=== PATIENT | female | born 1995 | race Caucasian/White ===

== ENCOUNTER 2022-02-03 07:20 | Outpatient (CLI) | payer OTHER, SELFPAY ==
[2022-02-03 08:36] LABS: Hematocrit 34.2 % (37.0-47.0); Hemoglobin 11.5 g/dL (12.0-15.0)
[2022-02-03 08:45] LABS: Glucose 1 Hour PP 50gm Dose 141 mg/dL
[2022-02-03 09:26] LABS: HIV 1/2 Ab P24 Ag Result Negative (Negative)
[2022-02-03] MEDS: RHO(D) IMMUNE GLOBULIN 300 MCG/2 ML SYRINGE IM (16:42)
== END 2022-02-03 07:21 | disposition home or self-care (01) ==
LOC: ANHLAB 07:22
PROVIDERS: PCP Internal Medicine; Visit Provider Advanced Practice Midwife
DX: O36.0190 Maternal care for anti-D [Rh] antibodies, unspecified trimester, not applicable or unspecified (principal); Z3A.00 Weeks of gestation of pregnancy not specified
CPT/HCPCS: 36415; 82947; 85014; 85018; 85461; 86703; 90384; 96372; G0432; J2790

== ENCOUNTER 2022-03-23 18:08 | Observation (INO) | payer OTHER, SELFPAY ==
[2022-03-23 18:08] VITALS: BMI 26.1
[2022-03-23 18:39] VITALS: BP 124/79; PULSE 67
[2022-03-23 19:00] VITALS: BP 119/76; PULSE 62; TEMP 36.7
[2022-03-23 19:05] LABS: Appearance Urine Clear (Clear); Bilirubin Urine Negative (Negative); Blood Urine Negative (Negative); Color Urine Yellow (Yellow); Glucose Urine UA Negative (Negative); Ketones Urine Negative (Negative); Leukocyte Esterase Ur 1+ LEU/UL (Negative); Nitrate Urine Negative (Negative); Protein Urine Negative (Negative); Urobilinogen Urine 0.2 mg/dL (<2.0); pH Urine 5.5 (5.0-9.0)
[2022-03-23 19:10] LABS: Bacteria Urine Trace /hpf; Mucus Urine Rare /lpf; Squamous Epithelial Cell Urine Few /hpf (Few)
[2022-03-23 19:11] LABS: Add Urine Microscopic? YES
[2022-03-23 19:30] VITALS: BP 122/77; PULSE 64
--- NOTE | 2022-04-18 10:27 | P.PNOB_ITS ---
OB - Triage/Final Diagnosis Visit Information Comments/Additional reasons for admission: I have assessed the risk for this patient, Dafne Cordova, and determined that she would benefit from observation care. Evaluation Laboratory results: Laboratory Tests 03/23/22 18:43 Urine Color Yellow Urine Appearance Clear Urine pH 5.5 Ur Specific [place] 1.020 Urine Protein Negative Urine Glucose (UA) Negative Urine Ketones Negative Ur Blood (Man) Negative Urine Nitrate Negative Urine Bilirubin Negative Urine Urobilinogen 0.2 Leukocyte Esterase Rfl 1+ H Urine RBC 3-5 H Urine WBC 7-9 H Ur Squamous Epith Cells Few Urine Bacteria Trace Urine Mucus Rare Final Diagnosis (1) False labor: Code(s): O47.9 - False labor, unspecified Status: Acute
== END 2022-03-23 20:10 | disposition home or self-care (01) ==
PROVIDERS: Admitting Provider Obstetrics & Gynecology; PCP Internal Medicine; Visit Provider Obstetrics & Gynecology
DX: O47.9 False labor, unspecified (principal); O26.899 Other specified pregnancy related conditions, unspecified trimester; M54.9 Dorsalgia, unspecified; Z3A.00 Weeks of gestation of pregnancy not specified
CPT/HCPCS: 81001; 87086; G0378; G0379

== ENCOUNTER 2022-04-08 15:02 | Outpatient (RCR) | payer OTHER, SELFPAY ==
[2022-04-07] VITALS (18 sets, daily range): BP systolic 122; BP diastolic 96; PULSE 69–99; O2SAT 99–100
[2022-04-07] MEDS: TERBUTALINE SULFATE 1 MG/ML VIAL 0.25 MG SUB-Q (07:16)
--- NOTE | 2022-04-07 07:36 | W.PM.PROC2 ---
Procedure Note - Detailed Date of Procedure 04/07/22 Pre-op Diagnosis breech position, 36 week gestation Post-op Diagnosis Same Procedure Performed attempted external cephalic version Surgeon Paul Moffett MD Indications Thirty-six weeks, venkat breech presentation. Findings Thirty-six week gestation, venakt breech position, venkat breech with presenting parts deep in the pelvis. Description of Procedure Determine position the baby with ultrasound. To rotate the baby in a forward roll. Pushing the presenting part out of the pelvis. It was difficult to push the breech presenting part of the pelvis. Used vaginal exam is cervical exam to elevate the baby some and it could be moved some in that way, however could not be translated into movement transabdominally. The head would from right to left to some degree but could pass around the torso with the lower have rotating to the right and cephalic. The procedure had to be abandoned. The presenting part about removed out of the pelvis adequately Complications No immediate complications Condition Stable
[2022-04-08] MEDS: RHO(D) IMMUNE GLOBULIN 300 MCG/2 ML SYRINGE IM (15:02)
== END 2022-04-08 15:03 | disposition home or self-care (01) ==
LOC: ANHOBOP 15:02
PROVIDERS: PCP Internal Medicine; Visit Provider Obstetrics & Gynecology
DX: Z29.13 Encounter for prophylactic Rho(D) immune globulin (principal)
CPT/HCPCS: 36415; 59412; 85461; 86880; 86902; 90384; 96372; 99199; J2790; J3105

== ENCOUNTER 2022-04-16 04:38 | Inpatient (IN) | payer OTHER, SELFPAY ==
[2022-04-16] VITALS (107 sets, daily range): BP systolic 76–143; BP diastolic 46–102; PULSE 54–145; RESP 12–18; TEMP 36.4–37.1; O2SAT 95–100; BMI 26.6
--- NOTE | 2022-04-16 04:38 | LDADM ---
This patient, Dafne Cordova, was admitted to Labor/Delivery/Recovery 120 on 04/16/22 at 04:38. Plans for labor, pain management and were discussed with patient. Patient/family oriented to hospital policies and general routines including ID bracelet, bed and alarms, visiting hours, pain management, procedures, bathroom and other care routines, personal items, smoking policy, room service/diet and guest tray routines, infant security routines, and visiting hours. Patient/Family are encouraged to report perceived risks to care and to ask questions if they do not understand what they are told or what they should do. See OBIX for further documentation.
--- OUTSIDE RECORDS SUMMARY | 2022-04-16 04:51 | XMS_ITS | Encounter Summary ---
:1995 Author Care Team Providers Name Role Phone Juan Keenan MD Primary Care Provider [phone] Reason for Visit None recorded. Assessment and Plan 1. Pre-existing maternal disease compli cating ? US, obstetric, follow-up Discussion Note: None recorded.Patient educational handouts: No information available. Plan of Care Reminders Provider Appointments Ob Routine 04/19/2022 Cordell hernandez MD 4:45PM ? SURG CSection 04/21/2022 Cordell hernandez MD 7:30AM ? Surg Post Op 04/28/2022 Cordell hernandez MD 10:45AM Lab None recorded. ? ? Referral None recorded. ? ? Procedures None recorded. ? ? Surgeries None recorded. ? ? Imaging US, Obstetric, Follow-up 03/30/2022 Mark valenzuela Medications Name Start Date ? ? Asprin Ec Low Dose ? citalopram ? citalopram 40 mg tablet ? Daily ? Pepcid ? ? Medications Administered None recorded. Vitals None recorded. Results Lab Results None recorded. Allergies Code Code System Name Reaction Severity Onset Penicillin Rash Mild to Moderate ? Penicillins Rash ? ? Problems Name Status Onset Date Source ? 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 Mixed Anxiety and Depressive Disorder Active 09/07/2021 ? Active 10/11/2021 ? Procedures Date Name Performed by ?
--- OUTSIDE RECORDS SUMMARY | 2022-04-16 04:51 | XMS_ITS | Encounter Summary ---
:1995 Author Care Team Providers Name Role Phone Juan Keenan MD Primary Care Provider [phone] Reason for Visit OB visit OB [id number] EDC 04/28/2022 LMP 07/06/2021 Assessment and Plan Assessment Note Patient is _33__weeks . Discuss ed plan. 1. Routine care Discussion Note: None recorded.Patient educational handouts: No information available. Plan of Care Reminders Provider Appointments Ob Routine 04/19/2022 4:45PM Cordell Moffett MD ? SURG CSection 04/21/2022 7:30AM Cordell Moffett MD ? Surg Post Op 04/28/2022 10:45AM Cordell Moffett MD Lab None recorded. ? ? Referral None recorded. ? ? Procedures None recorded. ? ? Surgeries None recorded. ? ? Imaging None recorded. ? ? Medications Name Start Date ? ? Asprin Ec Low Dose ? citalopram ? citalopram 40 mg tablet ? Daily ? Pepcid ? ? Medications Administered None recorded. Vitals Height Weight BMI Blood Pressure 5 ft 8 in 173 lbs 26.3 kg/m2 111/73 mm[Hg] Results Lab Results None recorded. Allergies Code Code System Name Reaction Severity Onset Penicillin Rash Mild to Moderate ? Penicillins Rash ? ? Problems Name Status Onset Date Source ? 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 Mixed Anxiety and Depressive Disorder Active 09/07/2021 ? Active 10/11/2021 ? Procedures
--- OUTSIDE RECORDS SUMMARY | 2022-04-16 04:51 | XMS_ITS | Encounter Summary ---
:1995 Author Care Team Providers Name Role Phone Juan Keenan MD Primary Care Provider [phone] Reason for Visit OB visit Assessment and Plan Assessment Note Patient is ___weeks . Discussed plan. 1. Routine care Discussion Note: None [...] BMI Blood Pressure 5 ft 8 in 176 lbs 26.8 kg/m2 119/81 mm[Hg] Results Lab Results None recorded. Allergies Code Code System Name Reaction Severity Onset Penicillin Rash Mild to Moderate ? Penicillins Rash ? ? Problems Name Status Onset Date Source ? 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 Mixed Anxiety and Depressive Disorder Active 09/07/2021 ? Active 10/11/2021 ? Procedures Date Name Performed by ?
--- OUTSIDE RECORDS SUMMARY | 2022-04-16 04:51 | XMS_ITS ---
:1995 Author Care Team Providers Name Role Phone YAMILETH ALICEA MD Primary Care Provider [phone] Allergies Code Code System Name Reaction Severity Status Onset Penicillin Rash Mild to Moderate Active ? Penicillins Rash ? Active ? Medications Name Status Start Date Stop Date ? ? albuterol sulfate HFA 90 mcg/actuation aerosol Completed ? 11/09/2020 inhaler Asprin Ec Low Dose Active ? Not available azithromycin 250 mg tablet Active ? Not a vailable TK 2 TS PO QD FOR 1 DAY THEN TK 1 T PO D bupropion HCl XL 150 mg 24 hr tablet, extended Completed ? 11/09/2020 release bupropion HCl XL 300 mg 24 hr tablet, extended Completed ? 11/09/2020 release Celexa 10 mg tablet Completed ? 11/09/2020 take 1 tablet by oral route every day citalopram Active ? Not available citalopram 20 mg tablet Completed ? 09/07/20 21 citalopram 40 mg tablet Active ? Not avai lable Cymbalta Completed ? 09/07/2021 Daily Active ? Not available duloxetine 30 mg capsule,delayed release Completed ? 11/09/2020 Flucelvax Quad (PF) 60 mcg (15 mcg x 4)/0.5 mL IM syri nge Completed ? 11/09/2020 PHARMACIST ADMINISTERED IMMUNIZATION ADMINISTERED AT TIME OF DI SPENSING fluconazole 150 mg tablet Completed ? 2021 Elsi 24 Fe 1 mg-20 mcg (24)/75 mg (4) tablet Completed ? 09/07/2021 TAKE 1 TABLET DAILY Lo Loestrin Fe 1 mg-10 mcg (24)/10 mcg (2) tablet Completed 05/06/2018 11/01/2018 TAKE 1 TABLET BY MOUTH EVERY DAY Loestrin Fe 1/20 (28-Day) 1 mg-20 mcg (21)/75 mg (7) tablet Completed 11/03/2018
--- OUTSIDE RECORDS SUMMARY | 2022-04-16 04:51 | XMS_ITS | Encounter Summary ---
:1995 Author Care Team Providers Name Role Phone Juan Keenan MD Primary Care Provider [phone] Reason for Visit None recorded. Assessment and Plan 1. COVID-19 ? US, obstetric, follow-up Discussion Note: None [...] recorded. ? ? Imaging US, Obstetric, Follow-up 03/02/2022 Mark valenzuela Medications Name Start Date ? [...] ? Procedures Date Name Performed by ? 04/16/2019 Laparoscopic Excision
--- OUTSIDE RECORDS SUMMARY | 2022-04-16 04:51 | XMS_ITS | Encounter Summary ---
:1995 Author Care Team Providers Name Role Phone Juan Keenan MD Primary Care Provider [phone] Reason for Visit OB visit OB [id number] EDC 04/28/2022 LMP 07/06/2021 Assessment and Plan 1. Routine care Discussion Note: None recorded.Patient [...] BMI Blood Pressure 5 ft 8 in 174 lbs 26.5 kg/m2 110/73 mm[Hg] Results Lab Results None recorded. Allergies Code Code System Name Reaction Severity Onset Penicillin Rash Mild to Moderate ? Penicillins Rash ? ? Problems Name Status Onset Date Source ? 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 Mixed Anxiety and Depressive Disorder Active 09/07/2021 ? Active 10/11/2021 ? Procedures Date Name Performed by ? 04/16/2019 Laparoscopic Excision of Cyst of Left Ov nell Information no
--- OUTSIDE RECORDS SUMMARY | 2022-04-16 04:51 | XMS_ITS | Encounter Summary ---
:1995 Author Care Team Providers Name Role Phone Juan Keenan MD Primary Care Provider [phone] Reason for Visit OB visit Assessment and [...] BMI Blood Pressure 5 ft 8 in 177 lbs 26.9 kg/m2 115/78 mm[Hg] Results Lab Results None recorded. Allergies Code Code System Name Reaction Severity Onset Penicillin Rash Mild to Moderate ? Penicillins Rash ? ? Problems Name Status Onset Date Source ? 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 Mixed Anxiety and Depressive Disorder Active 09/07/2021 ? Active 10/11/2021 ? Procedures Date Name Performed by ?
--- OUTSIDE RECORDS SUMMARY | 2022-04-16 04:51 | XMS_ITS | Encounter Summary ---
:1995 Author Care Team Providers Name Role Phone Juan Keenan MD Primary Care Provider [phone] Reason for Visit None recorded. Assessment and Plan None recorded.Discussion Note: None recorded.Patient educational handouts: No information [...] of Cyst of Left Ov nell Information not available 03/30/2022 , Obstetric, Follow-up [facility] [address] [place] [address]
--- OUTSIDE RECORDS SUMMARY | 2022-04-16 04:51 | XMS_ITS | Encounter Summary ---
:1995 Author Care Team Providers Name Role Phone Juan Keenan MD Primary Care Provider [phone] Reason for Visit OB visit Assessment and [...] BMI Blood Pressure 5 ft 8 in 172 lbs 26.2 kg/m2 102/68 mm[Hg] Results Lab Results None recorded. Allergies Code Code System Name Reaction Severity Onset Penicillin Rash Mild to Moderate ? Penicillins Rash ? ? Problems Name Status Onset Date Source ? 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 Mixed Anxiety and Depressive Disorder Active 09/07/2021 ? Active 10/11/2021 ? Procedures Date Name Performed by ?
--- OUTSIDE RECORDS SUMMARY | 2022-04-16 04:52 | XMS_ITS | Encounter Summary ---
:1995 Author Care Team Providers Name Role Phone Juan Keenan MD Primary Care Provider [phone] Reason for Visit OB visit obb [id number] edc 04/28/2022 lmp 07/06/2021 Assessment and Plan Assessment Note Patient is __29_weeks . Discuss ed plan. 1. Routine care [...] BMI Blood Pressure 5 ft 8 in 165 lbs 25.1 kg/m2 110/72 mm[Hg] Results Lab Results None recorded. Allergies Code Code System Name Reaction Severity Onset Penicillin Rash Mild to Moderate ? Penicillins Rash ? ? Problems Name Status Onset Date Source ? 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 Mixed Anxiety and Depressive Disorder Active 09/07/2021 ? Active 10/11/2021 ? Procedures
--- OUTSIDE RECORDS SUMMARY | 2022-04-16 04:52 | XMS_ITS | Encounter Summary ---
:1995 Author Care Team Providers Name Role Phone Juan Keenan MD Primary Care Provider [phone] Reason for Visit None recorded. Assessment and [...] recorded. ? ? Imaging US, Obstetric, Follow-up 02/02/2022 Mark valenzuela Medications Name Start Date ? [...]
--- OUTSIDE RECORDS SUMMARY | 2022-04-16 04:52 | XMS_ITS ---
:1995 Author Care Team Providers Name Role Phone Covid Vaccine Primary Care Provider Unavailable Allergies None recorded. Medications None recorded. Problems None recorded. Procedures None recorded. Results Lab Results None recorded. Past Encounters 08/09/2021 Administration of SARS-CoV-2 Antigen Vac cine Jeffery Kelly MD: [address] [place] [address] Social History None recorded. Vaccine List Vaccine Type COVID-19, mRNA, LNP-S, PF, 30 mcg/0.3 mL dose ([employer]) 08/09/2021?0.3 mL Plan of Care Reminders Provider Appointments None recorded. ? ? Lab None recorded. ? ? Referral None recorded. ? ? Procedures None recorded. ? ? Surgeries None recorded. ? ? Imaging None recorded. ? ? Vitals None recorded.
--- OUTSIDE RECORDS SUMMARY | 2022-04-16 04:52 | XMS_ITS | Encounter Summary ---
:1995 Author Care Team Providers Name Role Phone Juan Keenan MD Primary Care Provider [phone] Reason for Visit OB visit Assessment and [...] ft 8 in 165 lbs 25.1 kg/m2 113/75 mm[Hg] Results Lab Results None recorded. Allergies Code Code System Name Reaction Severity Onset Penicillin Rash Mild to Moderate ? Penicillins Rash ? ? Problems Name Status Onset Date Source ? 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 Mixed Anxiety and Depressive Disorder Active 09/07/2021 ? Active 10/11/2021 ? Procedures Date Name Performed by ?
[2022-04-16] MEDS: LACTATED RINGERS 1,000 ML 125 ML IV CONT ×2 (05:17→06:48)
[2022-04-16 05:22] LABS: Basophils Percent Auto 0.2 % (0.2-1.2); Eosinophils Absolute Auto 0.2 K/mm3 (0-0.3); Eosinophils Percent Auto 1.4 % (0-4.4); Hematocrit 37.5 % (37.0-47.0); Hemoglobin 12.7 g/dL (12.0-15.0); Immature Granulocyte Percent A 0.8 % (0-0.5); Lymphocytes Percent Auto 19.1 % (18.3-44.2); Mean Corpuscular HGB Conc 33.9 g/dl (32-36); Mean Corpuscular Hemoglobin 31.5 pg (26-34); Mean Corpuscular Volume 93.1 fl (80-100); Mean Platelet Volume 13.3 fl (7.4-10.4); Monocytes Absolute Auto 0.8 K/mm3 (0.1-0.6); Monocytes Percent Auto 6.2 % (2.6-8.5); Neutrophils Absolute Auto 9.1 K/mm3 (1.3-6.7); Neutrophils Percent Auto 72.3 % (45.5-73.1); Platelet Count Result 154 k/mm3 (150-375); Red Blood Count 4.03 M/mm3 (4.2-5.4); Red Cell Distribution Width 12.1 % (11.5-14.5); White Blood Count 12.6 K/mm3 (4.5-10.0)
--- NOTE | 2022-04-16 05:41 | WPDANESEPP ---
Anes - Eval Pre Procedure Procedure: Operation Date: 04/16/22 09:00 Proposed Procedures p Primary Section - Paul Moffett MD Date/Time: 04/16/22 05:41 Pre Op Diagnosis: SROM Patient Data Age: 26 Gender: F Height: 1.73 m Weight: 79.5 kg Last Vital Signs Temp 37.1 C 04/16/22 05:06 Pulse 65 04/16/22 05:31 BP 125/81 04/16/22 05:31 O2 Del Method Room Air 04/16/22 04:58 Allergies Allergy/AdvReac Type Severity Reaction Status Date / Time Penicillins Allergy Severe Rash Verified 04/16/22 05:08 Home Medications Medication Instructions Recorded Confirmed Type aspirin 81 mg capsule 81 mg PO DAILY 03/23/22 04/16/22 History citalopram 40 mg tablet (Celexa) 40 mg PO DAILY 03/23/22 04/16/22 History vit no.95-ferrous 1 tablet PO DAILY 03/23/22 04/16/22 History fumarate 28 mg-folic acid 800 mcg tablet () Laboratory Tests 04/16/22 04/16/22 05:15 05:15 WBC 12.6 K/mm3 H K/mm3 (4.5-10.0) RBC 4.03 M/mm3 L M/mm3 (4.2-5.4) Hgb 12.7 g/dL g/dL (12.0-15.0) Hct 37.5 % % (37.0-47.0) MCV 93.1 fl fl (80-100) MCH 31.5 pg pg (26-34) MCHC 33.9 g/dl g/dl (32-36) RDW 12.1 % % (11.5-14.5) Plt Count 154 k/mm3 k/mm3 (150-375) MPV 13.3 fl H fl (7.4-10.4) Immature Gran % (Auto) 0.8 % H % (0-0.5) Neut % (Auto) 72.3 % % (45.5-73.1) Lymph % (Auto) 19.1 % % (18.3-44.2) [place] % (Auto) 6.2 % % (2.6-8.5) Eos % (Auto) 1.4 % % (0-4.4) Baso % (Auto) 0.2 % % (0.2-1.2) Lymph # (Auto) 2.40 K/mm3 K/mm3 (0.9-3.2) [place] # (Auto) 0.8 K/mm3 H K/mm3 (0.1-0.6) Eos # (Auto) 0.2 K/mm3 K/mm3 (0-0.3) Baso # (Auto) 0.0 K/mm3 K/mm3 (0.0-0.1) Abs Immat Gran (auto) 0.10 K/mm3 H K/mm3 (0.00-0.031) Absolute Neuts (auto) 9.1 K/mm3 H K/mm3 (1.3-6.7) Absolute Nucleated RBC 0.0 K/mm3 K/mm3 (0.0-0.012) Nucleated RBC % 0.0 % % (0.0-0.2) % Immature Plt Fraction 20.0 % H % (0.9-11.2) RPR Pending Patient hx anesthesia problems: none Family hx anesthesia problems: none Results Review: All pre-operative results and documents have been reviewed as part of the pre-operative evaluation. [facility] Past Medical History Medical History (Updated 04/16/22 @ 05:44 by Kaitlyn Lehman CRNA) Anxiety and depression Asthma Family History Family History Grandparent High cholesterol Prostate carcinoma Hypertension Grandparent High cholesterol Hypertension Mother H/O partial thyroidectomy Classic migraine Social History Social History Smoking status: Never smoker Substance use: never Spiritual care concerns: No Exam Day of Procedure 04/16/22 05:41 Patient weight: normal Heart: regular rate and rhythm Lungs: normal air movement Airway: Mallampati scale Neurological: alert and oriented Other findings: asthma was in childhood
[2022-04-16] MEDS: CLINDAMYCIN 900 MG/D5W 50 ML 900 MG/50 ML PIGGYBACK 50 MG IVPB (06:30)
--- NOTE | 2022-04-16 08:26 | PM.IMHP ---
H&P: HPI History of Present Illness Date/Time: 04/16/22 08:26 Chief Complaint: John luna, breech, term Narrative: This patient is a 26-year-old 1 at 38 weeks gestation who presented with gross rupture of membranes. She has an in the breech position. Breech position was confirmed with ultrasound. She denies any contractions, vaginal bleeding, nausea, vomiting, fever, chills. She denies any chest pain shortness of breath. Review of Systems Review of Systems: All systems reviewed & are unremarkable except as noted in HPI and below Constitutional: Constitutional: Denies chills, Denies fatigue, Denies fever(s) and Denies weakness Eyes: Eyes: Denies blurry vision, Denies change in vision, Denies loss of peripheral vision, Denies loss of vision, Denies other visual disturbances and Denies eye pain ENT: Denies vertigo, Denies dizziness, Denies hearing loss, Denies mouth pain, Denies nasal obstruction, Denies neck mass and Denies neck pain Cardiovascular: Cardiovascular: Denies chest pain, Denies diaphoresis, Denies syncope, Denies leg edema and Denies dyspnea Respiratory: Respiratory: Denies chest congestion, Denies cough, Denies hemoptysis, Denies dyspnea and Denies wheezing Gastrointestinal: Gastrointestinal: Denies abdominal pain, Denies constipation, Denies diarrhea, Denies nausea and Denies vomiting Genitourinary: Genitourinary: Denies hematuria, Denies change in libido, Denies nocturia, Denies genital lesions, Denies flank pain and Denies urinary urgency Musculoskeletal: Musculoskeletal: Denies abnormal gait, Denies back pain, Denies myalgias, Denies arthralgias, Denies joint swelling, Denies muscle weakness and Denies neck pain Integumentary/Breasts: Skin/Breast: Denies swelling, Denies breast pain, Denies breast mass, Denies dry skin, Denies nipple discharge, Denies unusual bruising and Denies jaundice Neurologic: Denies Neuro-related abnormal movements, Denies Abnormal speech present, Denies abnormal gait, Denies behavioral changes, Denies confusion, Denies vertigo, Denies dizziness, Denies syncope, Denies loss of vision, Denies memory loss, Denies convulsions and Denies weakness Psychiatric: Psychiatric: Denies abnormal sleep pattern, Denies behavioral changes, Denies change in libido, Denies confusion, Denies depression, Denies anhedonia and Denies memory loss Endocrine: Endocrine: Reports no additional endocrine complaints, Denies change in libido and Denies fatigue Hematologic/Lymphatic: Hematologic/Lymphatic: Reports no additional hematologic/lymphatic complaints Allergic/Immunologic: Allergic/Immunologic: Reports no additional allergic/immunologic complaints and Denies wheezing PMFSH Past Medical History Medical History (Updated 04/16/22 @ 08:28 by Paul Moffett MD) Anxiety and depression Asthma Family History Family History Grandparent High cholesterol Prostate carcinoma Hypertension Grandparent High cholesterol Hypertension Mother H/O partial thyroidectomy Classic migraine Social History Social History Smoking status: Never smoker Substance use: never Spiritual care concerns: No Meds Home Medications and Allergies Home Medications Medication Instructions Recorded Confirmed Type aspirin 81 mg capsule 81 mg PO DAILY 03/23/22 04/16/22 History citalopram 40 mg tablet (Celexa) 40 mg PO DAILY 03/23/22 04/16/22 History vit no.95-ferrous 1 tablet PO DAILY 03/23/22 04/16/22 History fumarate 28 mg-folic acid 800 mcg tablet () Allergies Allergy/AdvReac Type Severity Reaction Status Date / Time Penicillins Allergy Severe Rash Verified 04/16/22 05:08 Vital Signs Vital Signs - 24 hr 04/16/22 04:58 04/16/22 05:06 04/16/22 05:21 Temperature 98.7 F Pulse Rate 73 Blood Pressure 114/80 Pulse Oximetry Oxygen Deliver
--- NOTE | 2022-04-16 08:29 | WPDHPUPDATE1 ---
History and Physical Update Update Date/Time: 04/16/22 08:29 History and Physical has been reviewed, including an updated exam of the patient. There are NO changes in the patient's condition. Risks, benefits, and alternatives have been discussed and questions answered. Patient agrees to proceed with procedure.
[2022-04-16] MEDS: ceFAZolin 2 GM/D5W 50 ML 2 GM/50 ML BAG IVPB (08:49)
[2022-04-16] MEDS: KETOROLAC 30 MG/ML VIAL (*BKC) IV PUSH ×3 (09:25→21:07)
--- NOTE | 2022-04-16 09:26 | W.PM.PROC2 ---
Procedure Note - Detailed Date of Procedure 04/16/22 Pre-op Diagnosis SROM, spontaneous rupture membranes, term gestation Post-op Diagnosis Same Procedure Performed Low-transverse section Surgeon Paul Moffett MD Anesthesia Spinal Indications Breech presentation Findings Normal gestational maternal anatomy, average size , normal Apgars. Breech presentation. Description of Procedure The patient was taken the operating room. She was prepped and draped in dorsal supine position with a leftward tilt. This was done after spinal anesthetic was applied. A low-transverse skin incision was made and carried down till of the fascia with the knife. The fascial incision was made with the knife. The fascial incision was extended laterally with Mccollum scissors. The fascia was tented upward superiorly and inferiorly the rectus muscles were dissected off bluntly. The rectus muscles were the midline. The preperitoneal fat and peritoneum were dissected open bluntly at the superior aspect of the rectus muscles. The peritoneal incision was extended superior and inferior with good position of bladder. The uterine incision was made with a scalpel down to the level of the amniotic cavity. The amniotic cavity was entered bluntly. The was delivered. Breech presentation was delivered 1st, the legs were reduced,, arms and head were delivered. The cord was clamped and cut and the infant was handed off to waiting pediatric staff. Cord bloods were obtained. The placenta was removed manually. The uterus was exteriorized. The uterus was cleared of all clots, debris and membranes. The uterus was closed in 0 Vicryl running lock fashion. An imbricating over a was placed along the incision line as well. The uterus was returned to the abdomen. The gutters were cleared of all clots and debris. The fascia was closed with 0 Vicryl running fashion. The subcutaneous tissue was irrigated pinpoint bleeders were cauterized. The skin was closed with subcuticular absorbable anel. The skin incision line was covered with glue. The patient tolerated the procedure well. She has taken recovery room in stable condition. Sponge lap and needle counts were correct x2. Estimated Blood Loss 255 Pathology None sent Complications No immediate complications Condition Stable Disposition PACU
[2022-04-16] MEDS: OXYTOCIN 30 UNITS/NS 500 ML 30 UNITS/500 ML BAG 125 UNITS IV CONT (10:33)
--- NOTE | 2022-04-16 11:46 | OBPPTRN ---
Patient transferred to post room #288 via stretcher. Support person present. Oriented to unit, room, information board, rooming in, admission packet and security measures. Patient verbalizes understanding.
[2022-04-16] MEDS: DEXTROSE 5%/0.45% SOD CHL 1,000 ML 125 ML IV CONT (14:19)
[2022-04-16] MEDS: DOCUSATE SODIUM 100 MG CAPSULE PO (17:19)
[2022-04-17] MEDS: HYDROcodone/acetaminophen (*CRX) 5-325 MG TABLET 1 TAB PO ×3 (04:16→18:48)
[2022-04-17] MEDS: IBUPROFEN 600 MG TABLET PO ×3 (04:17→18:49)
[2022-04-17 04:20] VITALS: BP 105/60; PULSE 68; RESP 18; TEMP 36.9
[2022-04-17 04:35] LABS: Basophils Percent Auto 0.2 % (0.2-1.2); Eosinophils Absolute Auto 0.1 K/mm3 (0-0.3); Eosinophils Percent Auto 0.4 % (0-4.4); Hematocrit 29.9 % (37.0-47.0); Immature Granulocyte Absolute 0.12 K/mm3 (0.00-0.031); Immature Granulocyte Percent A 0.7 % (0-0.5); Immature Platelet Fraction Pct 17.7 % (0.9-11.2); Lymphocytes Percent Auto 13.7 % (18.3-44.2); Mean Corpuscular HGB Conc 33.4 g/dl (32-36); Mean Corpuscular Hemoglobin 31.5 pg (26-34); Mean Corpuscular Volume 94.3 fl (80-100); Mean Platelet Volume 13.7 fl (7.4-10.4); Monocytes Absolute Auto 1.1 K/mm3 (0.1-0.6); Monocytes Percent Auto 6.4 % (2.6-8.5); Neutrophils Absolute Auto 13.2 K/mm3 (1.3-6.7); Neutrophils Percent Auto 78.6 % (45.5-73.1); Platelet Count Result 124 k/mm3 (150-375); Red Blood Count 3.17 M/mm3 (4.2-5.4); Red Cell Distribution Width 11.9 % (11.5-14.5); White Blood Count 16.8 K/mm3 (4.5-10.0)
[2022-04-17 07:40] VITALS: BP 109/71; PULSE 65; RESP 18; TEMP 36.7; O2SAT 99
--- NOTE | 2022-04-17 07:43 | WPDANLDNPN2 ---
Anes-Prog Note L&D-Neuraxial Date/Time: 04/17/22 07:43 Patient feedback: Patient satisfied with post-operative pain management.
--- NOTE | 2022-04-17 07:43 | WPDANLDPN2 ---
Anes-Prog Note L&D Date/Time: 04/17/22 07:43 Neuro status: Neuro function grossly intact. Vital Signs: Last Vital Signs Temp 36.9 C 04/17/22 04:20 Pulse 68 04/17/22 04:20 Resp 18 04/17/22 04:20 BP 105/60 04/17/22 04:20 Pulse Ox 99 04/16/22 16:00 O2 Del Method Room Air 04/17/22 04:20 Pain score (VAS): 0 I/O: Intake & Output 04/16/22 04/16/22 04/17/22 15:59 23:59 07:59 Intake Total 500 2000 1000 Output Total 480 7810 1250 Balance 06 -556 -867 Patient feedback: Patient satisfied with anesthetic care.
--- NOTE | 2022-04-17 09:06 | PC.NURSE ---
[id number] Introductions were made, then consulted with patient to assess needs related to . Infant is in the crib sleeping. Mother led the conversation with her experience feeding her infant so far with rare latch, shallow latching and supplementing with formula. RN is demonstrating unwrapping and stimulation of infant for skin to skin. Mother works well with her with encouragement and education. Encouraged understanding of the benefits of skin to skin (unwrapping and placing vertically on her chest), responsive feeding and how to watch for early feeding signs, frequency of feeding on demand about every 8-12 times in 24 hours (every 2-3 hours), milk production, duration of feeding, signs of adequate intake/output and how to record on the feeding sheet. On/off for 40 min was given time to explore the breast and chest of mother. At times RN and mother collaborated with to the breast. At times infant appeared to refuse with arching of her back, then infant was allowed to explore the chest and breast again freely. At times infant would search with wide open mouth but not suck the breast into the mouth. used wide open gape mouth a couple of times, attempted to latch onto the nipple, sucked a few times, then held the nipple in mouth. Cross cradle and football position attempted on the right and left breast. Reviewed hand expression and/or pumping consistently to encourage milk production if needed. Mother hand expressed a drop of colostrum. Due to infant having received a formula bottle in the past RN decided to sprinkle formula onto mothers nipple to entice latching. Reviewed positioning and ear, shoulder, hip alignment, supporting the breast, asymmetrical latch (off-center), and leading with the chin with a big open side gape. Infant latched optimally to the left breast in cross cradle position. Education given to mother of how to visualize suck/swallow ratios and drinking at the breast. Infant was able to maintain latch without discomfort to mother with rocking motion and nice rounded cheek line. Nipple care reviewed with optimal latch and good positioning. After 20 min infant was demonstrating non-nutritive sucking and RN demonstrated detaching from the breast. There was slight misshaping to the nipple on what would have been the tongue side of the 's mouth. Reminding mother of comfort measures of healing with a warm and wet washcloth to rinse breast, then leave open to air-dry as needed. Reviewed good handwashing when or touching the breast/nipples to prevent infection. Resources used to facilitate learning were used with the visual handout/ tool/mom and baby guide. Mother voiced understanding of responsive feedings, stimulating with skin to skin, hand expressed colostrum, touch, talking to to encourage if it has been 2 -3 hours since the start of the last , to call if infant does not latch or there is discomfort with . Reported to the primary RN.
[2022-04-17] MEDS: DOCUSATE SODIUM 100 MG CAPSULE PO (09:19)
[2022-04-17] MEDS: CITALOPRAM HYDROBROMIDE 20 MG TABLET 40 MG PO (09:19)
[2022-04-17] MEDS: MULTIVIT/MIN/PREN/FOL AC/IRON TABLET 1 TAB PO (09:19)
[2022-04-17] MEDS: RHO(D) IMMUNE GLOBULIN 300 MCG/2 ML SYRINGE IM (10:29)
--- NOTE | 2022-04-17 11:23 | PC.NURSE ---
[id number] Consulted with patient to assess needs related to . Mother led conversation with her skin to skin on her chest. Mother works well with her . Reviewed working with infant, breast, nipples and how to protect the nipples with an optimal deep latch, good positioning, and good hand washing. Encouraged understanding the benefits of skin to skin, responding to feeding cues, frequencies of feeding 8-12 times in 24 hours (approximately 2-3 hours), duration of feedings, milk production, intake/output feeding sheet and signs of adequate intake encouraging swallowing at the breast. Reviewed positioning and alignment, supporting breast, off-centered (asymmetrical latch) and leading with the chin with big open wide gape. latched optimally to the right breast in cross cradle position after several attempts. Mother hand expressed drops of colostrum and infant was encouraged with a small amount of pace-fed bottle feeding of 5 mls, then optimal latch with rocking motion, rounded cheek line, suck/swallow ratios appropriate and heard. Education given to mother of how to visualize suck/swallow ratios and drinking at the breast. Infant was able to maintain latch without discomfort to mother. Nipple care reviewed with optimal latch and good positioning. Mother voiced and demonstrated understanding of the education shared, calling for assistance if the infant does not latch or if there is discomfort with . Reported to the primary RN.
[2022-04-17 16:28] LABS: Rapid Plasma Reagin Non-Reactive (NonReactive)
[2022-04-17 18:45] VITALS: BP 104/70; PULSE 60; RESP 18; TEMP 36.6
[2022-04-17] MEDS: TETANUS,DIPHTHERIA,AC PERTUSSIS ADULT (0.5 ML) BOOSTRIX IM (18:49)
[2022-04-18] MEDS: IBUPROFEN 600 MG TABLET PO (04:55)
[2022-04-18] MEDS: HYDROcodone/acetaminophen (*CRX) 5-325 MG TABLET 1 TAB PO (04:56)
[2022-04-18 07:50] VITALS: BP 121/78; PULSE 73; RESP 18; TEMP 37.2; O2SAT 98
[2022-04-18] MEDS: MULTIVIT/MIN/PREN/FOL AC/IRON TABLET 1 TAB PO (08:11)
[2022-04-18] MEDS: DOCUSATE SODIUM 100 MG CAPSULE PO (08:12)
[2022-04-18] MEDS: CITALOPRAM HYDROBROMIDE 20 MG TABLET 40 MG PO (08:12)
[2022-04-18 08:16] VITALS: PULSE 73; RESP 18; O2SAT 98
--- NOTE | 2022-04-18 09:18 | PM.OBPNVD ---
OB - PN: Subj Subjective Date/time seen: 04/18/22 09:18 Patient comments: no complaints, pain well controlled, incisional pain, tolerating diet and flatus present OB - PN: Obj Data Labs CBC & Chem 7: 04/17/22 04:15 Labs: Laboratory Results - last 24 hr 04/16/22 04/17/22 05:15 04:15 RPR Non-reactive Blood Type B Negative Antibody Screen Positive Antibody Identification Cancelled Antigen Identification Cancelled TOMY, IgG Interpret Cancelled TOMY, Poly Interpret Cancelled TOMY, Complement Interp Cancelled Screen Negative Baby's Blood Type B pos Baby's TOMY Negative Doses of RhIg Required 1 OB - PN A/P Plan day: 2 Plan: routine care Comments: POD#2 LTCS - no problems, Time Spent With Patient Time: Total time spent is greater than 50% in coordination of care (as documented) at patient's floor/unit and/or counseling patient: Exam Const: General: comfortable, no acute distress and alert Resp: Effort & Inspection: normal respiratory effort Auscultation: no crackles, no rales and no rhonchi Cardio: Rate: regular rate Heart sounds: no click, no murmurs and no rubs GI: Inspection: non-distended GI Palp: No Tenderness to palpation present (GI) Auscultation: normal bowel sounds Other: Incision - CDI Extrem: General: normal to inspection, no pedal edema and no calf tenderness
--- NOTE | 2022-04-18 09:19 | PM.OBDSVD ---
DS: Admitting Diagnosis Discharge Date 04/18/2022 Admitting Diagnosis term gestation. breech DS: Discharge Diagnosis Discharge Diagnosis (1) Breech presentation: Code(s): O32.1XX0 - Maternal care for breech presentation, not applicable or unspecified Status: Acute (2) Term : Code(s): Z34.90 - Encounter for supervision of normal , unspecified, unspecified trimester Status: Acute OB - DS: Summary OB Procedures : None OB Procedures Intrapartum: OB Procedures: : None Peripartum Data Procedures: Procedures Operation Date: 04/16/22 09:00 Actual Procedure Side Surgeon p Section Paul Moffett MD Time Spent with Patient Time attestation: Total time spent providing and/or coordinating discharge services: DS: Data Data Completed and Pending Labs on day of discharge: Labs from last 24 hours 04/17/22 04/16/22 04:15 05:15 RPR Non-reactive Blood Type B Negative Antibody Screen Positive Antibody Identification Cancelled Antigen Identification Cancelled TOMY, IgG Interpret Cancelled TOMY, Poly Interpret Cancelled TOMY, Complement Interp Cancelled Screen Negative Baby's Blood Type B pos Baby's TOMY Negative Doses of RhIg Required 1 Discharge Plan Discharge Discharging Clinician: Paul Moffett Patient Disposition: Home, Self-Care Activity: pelvic rest Diet: regular Patient Instructions: Antibiotic Form Stand Alone Forms: General Discharge Information Follow-up/Referrals: Paul Moffett MD [Physician] - Discharge Medications: New hydrocodone-acetaminophen 5-325 mg tablet 1 tablet PO Q4H PRN (Reason: pain) Qty: 25 0RF Continued citalopram [Celexa] 40 mg Tablet 40 mg PO DAILY PNV cmb#95-ferrous fumarate-FA [] 28 mg iron- 800 mcg Tablet 1 tablet PO DAILY Discontinued aspirin 81 mg Capsule 81 mg PO DAILY Date of admission: 04/16/22 04:38 Primary Care Provider: VonJuan Admitting Provider: Paul Moffett Attending physician on admission: Paul Moffett Condition: Stable
--- NOTE | 2022-04-18 13:28 | PC.NURSE ---
[id number] Mother led the conversation with her experience and plan to feed her so far and her ability to independently latch optimally without discomfort. Reminded parents to use good handwashing technique to prevent infection. Mother is feeding appropriately for growth of and understands stimulating to eat if needed. Infant has had appropriate feedings in the last 24 hours meets the outcomes for weight, output and jaundice at this time. Mother states she is confident to continue effectively her infant at home or when to call for assistance and denies any additional assistance or education at this time. Reinforced understanding of milk production, transition of milk, signs of adequate intake, prevention/relief of engorgement, responsive after visualizing feeding cues, the different methods of stimulating infant to breastfeed 2-3 hours after the start of the last feeding, community resources, medication information reviewed per [facility] and when to call a provider using the resource of the mom and baby guide/[facility] website. Mother voiced understanding of the education shared.
[2022-04-19 10:05] VITALS: BP 116/79; PULSE 76; RESP 16; TEMP 36.8; O2SAT 98
== END 2022-04-18 12:46 | disposition home or self-care (01) | DRG 788 ==
LOC: ANHLDR 05:14 → ANHOB2 12:08
PROVIDERS: Admitting Provider Obstetrics & Gynecology; PCP Internal Medicine; Visit Provider Obstetrics & Gynecology
PROC: 10D00Z1 Extraction of Products of Conception, Low, Open Approach (ICD-10-PCS; CPT 59514; principal; 2022-04-16 08:30)
DX: O32.1XX0 Maternal care for breech presentation, not applicable or unspecified (principal); O99.344 Other mental disorders complicating childbirth; F32.A Depression, unspecified; O42.92 Full-term premature rupture of membranes, unspecified as to length of time between rupture and onset of labor; O99.824 Streptococcus B carrier state complicating childbirth; O77.0 Labor and delivery complicated by meconium in amniotic fluid; O76 Abnormality in fetal heart rate and rhythm complicating labor and delivery; Z3A.38 38 weeks gestation of pregnancy; Z37.0 Single live birth
CPT/HCPCS: 36415; 85025; 85055; 85461; 86592; 86850; 86880; 86900; 86901; 90384; 90715; A9270; J0131; J0690; J1100; J1885; J2274; J2405; J2590; J2790; J2795; J7120

== ENCOUNTER 2023-06-22 13:17 | Outpatient (CLI) | payer OTHER, SELFPAY ==
[2023-06-23] MEDS: RHO(D) IMMUNE GLOBULIN 300 MCG/2 ML SYRINGE IM (10:13)
== END 2023-06-22 13:18 | disposition home or self-care (01) ==
LOC: ANHLAB 13:22
PROVIDERS: Visit Provider Obstetrics & Gynecology
DX: O20.0 Threatened abortion (principal); Z3A.00 Weeks of gestation of pregnancy not specified
CPT/HCPCS: 36415; 85461; 86850; 86900; 86901; 90384; J2790

== ENCOUNTER 2023-11-20 14:39 | Outpatient (RCR) | payer OTHER, SELFPAY ==
[2023-11-21] MEDS: RHO(D) IMMUNE GLOBULIN 300 MCG/2 ML SYRINGE IM (16:25)
== END 2024-02-18 23:59 | disposition home or self-care (01) ==
LOC: ANHLAB 14:39
PROVIDERS: Visit Provider Obstetrics & Gynecology
DX: O20.0 Threatened abortion (principal); Z29.13 Encounter for prophylactic Rho(D) immune globulin; O36.0190 Maternal care for anti-D [Rh] antibodies, unspecified trimester, not applicable or unspecified; Z3A.00 Weeks of gestation of pregnancy not specified
CPT/HCPCS: 36415; 85461; 86850; 86900; 86901; 90384; 96372; J2790

== ENCOUNTER 2023-12-29 11:00 | Outpatient (RCR) | payer OTHER, SELFPAY ==
[2023-12-29 11:28] VITALS: BP 109/74; PULSE 95
== END 2024-02-07 15:34 | disposition home or self-care (01) ==
LOC: ANHOBOP 11:00
PROVIDERS: Visit Provider Obstetrics & Gynecology
DX: O36.8130 Decreased fetal movements, third trimester, not applicable or unspecified (principal); O24.419 Gestational diabetes mellitus in pregnancy, unspecified control; Z3A.34 34 weeks gestation of pregnancy
CPT/HCPCS: 59025

== ENCOUNTER 2024-01-10 13:16 | Outpatient (CLI) | payer OTHER, SELFPAY ==
[2024-01-10 14:16] VITALS: BP 105/73; PULSE 88
--- NOTE | 2024-01-10 14:29 | PC.NURSE ---
Dr. Moffett informed of pt's arrival with c/o increased vaginal wetness and possible leaking a couple of times today. ROM plus was negative. Irregular contractions were noted on monitor; no change from what she has been feeling. SVE- internal os is closed. OK to discharge to home.
[2024-01-10 14:30] VITALS: BP 105/71; PULSE 74; PULSE 75
== END 2024-01-10 14:33 | disposition home or self-care (01) ==
LOC: ANHOBOP 14:13 → ANHLDR 14:14
PROVIDERS: Visit Provider Obstetrics & Gynecology
DX: O41.8X90 Other specified disorders of amniotic fluid and membranes, unspecified trimester, not applicable or unspecified (principal)
CPT/HCPCS: 59025; 84112; 99199

== ENCOUNTER 2024-02-01 05:23 | Inpatient (IN) | payer OTHER, SELFPAY ==
[2024-02-01] VITALS (56 sets, daily range): BP systolic 96–120; BP diastolic 52–88; PULSE 54–85; RESP 11–18; TEMP 36.2–37.2; O2SAT 98–100; BMI 26.1
[2024-02-01] MEDS: ACETAMINOPHEN 500 MG TABLET 1000 MG PO (06:10)
[2024-02-01 06:11] LABS: Basophils Percent Auto 0.3 % (0.2-1.2); Eosinophils Absolute Auto 0.2 K/mm3 (0-0.3); Eosinophils Percent Auto 1.6 % (0-4.4); Hematocrit 35.9 % (37.0-47.0); Hemoglobin 12.4 g/dL (12.0-15.0); Immature Granulocyte Absolute 0.08 K/mm3 (0.00-0.031); Immature Granulocyte Percent A 0.9 % (0-0.5); Lymphocytes Absolute Auto 1.97 K/mm3 (0.9-3.2); Lymphocytes Percent Auto 21.5 % (18.3-44.2); Mean Corpuscular HGB Conc 34.5 g/dl (32-36); Mean Corpuscular Hemoglobin 32.5 pg (26-34); Mean Platelet Volume 12.7 fl (7.4-10.4); Monocytes Absolute Auto 0.7 K/mm3 (0.1-0.6); Monocytes Percent Auto 7.5 % (2.6-8.5); Neutrophils Absolute Auto 6.3 K/mm3 (1.3-6.7); Neutrophils Percent Auto 68.2 % (45.5-73.1); Platelet Count Result 140 k/mm3 (150-375); Red Blood Count 3.82 M/mm3 (4.2-5.4); Red Cell Distribution Width 12.9 % (11.5-14.5); White Blood Count 9.2 K/mm3 (4.5-10.0)
[2024-02-01] MEDS: LACTATED RINGERS 1,000 ML 125 ML IV CONT ×2 (06:13→07:09)
--- NOTE | 2024-02-01 06:33 | LDADM ---
This patient, Dafne Cordova, was admitted to Labor/Delivery/Recovery 120 on 02/01/24 at 05:23. Plans for section, pain management and were discussed with patient. Patient/family oriented to hospital policies and general routines including ID bracelet, bed and alarms, visiting hours, pain management, procedures, bathroom and other care routines, personal items, smoking policy, room service/diet and guest tray routines, security routines, and visiting hours. Patient/Family are encouraged to report perceived risks to care and to ask questions if they do not understand what they are told or what they should do. See [facility]BI[facility] for further documentation.
[2024-02-01 07:01] LABS: Glucose Point of Care 81 mg/dl (65-105)
[2024-02-01] MEDS: FAMOTIDINE 20 MG/2 ML VIAL IV PUSH (07:09)
[2024-02-01] MEDS: ONDANSETRON INJ 4 MG/2 ML VIAL IV PUSH (07:09)
--- NOTE | 2024-02-01 07:11 | PM.IMHP ---
H&P: [facility] History of Present Illness Date/Time: 02/01/24 07:11 Chief Complaint: Term Narrative: This patient is a 28-year-old multiparous female with previous delivery. She presents at term for repeat . She understands the procedure. Has been explained her in detail. She understands the risk. She understands injuries may occur that result in hospitalization, more surgery, and severe illness. She understands risk of hemorrhage infection. She denies any nausea, vomiting, fever, chills. She denies any chest pain or shortness of breath. Review of Systems Review of Systems: All systems reviewed & are unremarkable except as noted in HPI and below Constitutional: Constitutional: Denies chills, Denies fatigue, Denies fever(s) and Denies weakness Eyes: Eyes: Denies blurry vision, Denies change in vision, Denies loss of peripheral vision, Denies loss of vision, Denies other visual disturbances and Denies eye pain ENT: Denies vertigo, Denies dizziness, Denies hearing loss, Denies mouth pain, Denies nasal obstruction, Denies neck mass and Denies neck pain Cardiovascular: Cardiovascular: Denies chest pain, Denies diaphoresis, Denies syncope, Denies leg edema and Denies dyspnea Respiratory: Respiratory: Denies chest congestion, Denies cough, Denies hemoptysis, Denies dyspnea and Denies wheezing Gastrointestinal: Gastrointestinal: Denies abdominal pain, Denies constipation, Denies diarrhea, Denies nausea and Denies vomiting Genitourinary: Genitourinary: Denies hematuria, Denies change in libido, Denies nocturia, Denies genital lesions, Denies flank pain and Denies urinary urgency Musculoskeletal: Musculoskeletal: Denies abnormal gait, Denies back pain, Denies myalgias, Denies arthralgias, Denies joint swelling, Denies muscle weakness and Denies neck pain Integumentary/Breasts: Skin/Breast: Denies swelling, Denies breast pain, Denies breast mass, Denies dry skin, Denies nipple discharge, Denies unusual bruising and Denies jaundice Neurologic: Denies Neuro-related abnormal movements, Denies Abnormal speech present, Denies abnormal gait, Denies behavioral changes, Denies confusion, Denies vertigo, Denies dizziness, Denies syncope, Denies loss of vision, Denies memory loss, Denies convulsions and Denies weakness Psychiatric: Psychiatric: Denies abnormal sleep pattern, Denies behavioral changes, Denies change in libido, Denies confusion, Denies depression, Denies anhedonia and Denies memory loss Endocrine: Endocrine: Reports no additional endocrine complaints, Denies change in libido and Denies fatigue Hematologic/Lymphatic: Hematologic/Lymphatic: Reports no additional hematologic/lymphatic complaints Allergic/Immunologic: Allergic/Immunologic: Reports no additional allergic/immunologic complaints and Denies wheezing PMFSH Past Medical History Medical History (Updated 01/10/24 @ 17:06 by Clinton Olmos Jr., CRNA) Anxiety and depression Asthma Term Family History Family History Grandparent High cholesterol Prostate carcinoma Hypertension Grandparent High cholesterol Hypertension Mother H/O partial thyroidectomy Classic migraine Social History Social History Smoking status: Never smoker Substance use: never Do You Feel Safe in your Home?: Yes Lack of Transportation: No Lack of Food: Never True Current Housing: I Have Housing Concerned About Future Housing: No Difficulty Paying Gas/Electric Bills: No Difficulty Paying for Meds: No Currently Unemployed: No Education: Master's Degree or Higher Difficulty w/ Childcare or Family Care: No Spiritual care concerns: No Meds Home Medications and Allergies Home Medications Medication Instructions Recorded Confirmed Type citalopram 40 mg tablet (Celexa) 40 mg PO DAILY 03/23/22 02/01/24 History pren
--- NOTE | 2024-02-01 07:13 | WPDHPUPDATE1 ---
History and Physical Update Update Date/Time: 02/01/24 07:13 History and Physical has been reviewed, including an updated exam of the patient. There are NO changes in the patient's condition. Risks, benefits, and alternatives have been discussed and questions answered. Patient agrees to proceed with procedure.
--- NOTE | 2024-02-01 07:20 | WPDANESEPPF ---
Anes - Initial Pre Proc Eval Procedure: Operation Date: 02/01/24 07:30 Proposed Procedures p Repeat Section - Paul Moffett MD Date/Time: 02/01/24 07:20 Surgeon: Paul Moffett MD Pre Op Diagnosis: C/S Patient Data Age: 28 Gender: F Height: 1.73 m Weight: 78 kg Last Vital Signs Temp 99.0 F 02/01/24 07:02 Pulse 67 02/01/24 06:43 BP 120/88 02/01/24 06:43 O2 Del Method Room Air 02/01/24 06:26 Allergies Allergy/AdvReac Type Severity Reaction Status Date / Time Penicillins Allergy Severe Rash Verified 01/14/24 14:50 Home Medications Medication Instructions Recorded Confirmed Type citalopram 40 mg tablet (Celexa) 40 mg PO DAILY 03/23/22 02/01/24 History vit no.95-ferrous 1 tablet PO DAILY 03/23/22 02/01/24 History fumarate 28 mg-folic acid 800 mcg tablet () Laboratory Tests 02/01/24 02/01/24 06:04 06:57 WBC 9.2 K/mm3 (4.5-10.0) RBC 3.82 L M/mm3 (4.2-5.4) Hgb 12.4 g/dL (12.0-15.0) Hct 35.9 L % (37.0-47.0) MCV 94.0 fl (80-100) MCH 32.5 pg (26-34) MCHC 34.5 g/dl (32-36) RDW 12.9 % (11.5-14.5) Plt Count 140 L k/mm3 (150-375) MPV 12.7 H fl (7.4-10.4) Immature Gran % (Auto) 0.9 H % (0-0.5) Neut % (Auto) 68.2 % (45.5-73.1) Lymph % (Auto) 21.5 % (18.3-44.2) [place] % (Auto) 7.5 % (2.6-8.5) Eos % (Auto) 1.6 % (0-4.4) Baso % (Auto) 0.3 % (0.2-1.2) Lymph # (Auto) 1.97 K/mm3 (0.9-3.2) [place] # (Auto) 0.7 H K/mm3 (0.1-0.6) Eos # (Auto) 0.2 K/mm3 (0-0.3) Baso # (Auto) 0.0 K/mm3 (0.0-0.1) Abs Immat Gran (auto) 0.08 H K/mm3 (0.00-0.031) Absolute Neuts (auto) 6.3 K/mm3 (1.3-6.7) Absolute Nucleated RBC 0.000 K/mm3 (0.0-0.012) Nucleated RBC % 0.0 % (0.0-0.2) POC Capillary Glucose 81 mg/dl (65-105) RPR Pending Patient hx anesthesia problems: none Family hx anesthesia problems: none Results Review: All pre-operative results and documents have been reviewed as part of the pre-operative evaluation. [facility] Past Medical History Medical History (Updated 01/10/24 @ 17:06 by Clinton Olmos Jr., CRNA) Anxiety and depression Asthma Term Family History Family History Grandparent High cholesterol Prostate carcinoma Hypertension Grandparent High cholesterol Hypertension Mother H/O partial thyroidectomy Classic migraine Social History Social History Smoking status: Never smoker Substance use: never Do You Feel Safe in your Home?: Yes Lack of Transportation: No Lack of Food: Never True Current Housing: I Have Housing Concerned About Future Housing: No Difficulty Paying Gas/Electric Bills: No Difficulty Paying for Meds: No Currently Unemployed: No Education: Master's Degree or Higher Difficulty w/ Childcare or Family Care: No Spiritual care concerns: No Anes - Eval Final PreProcedure Day of Procedure 02/01/24 07:20 Patient weight: normal Heart: regular rate and rhythm Lungs: clear to auscultation Airway: Mallampati scale class II Neurological: alert and oriented Last oral intake: >/= 8 hours ASA classification: II Emergent: no Anesthetic plan: proceed Anesthesia type and monitoring: regional spinal and standard monitoring Other findings: Plts 140. FSBS 81. Results Review: All pre-operative results and documents have been reviewed as part of the pre-operative evaluation. Informed Consent: The patient's anesthetic plan and its attendant risks and benefits were discussed with the patient/family/POA. Questions were solicited and answers provided to the satisfaction of the patient/family/POA.
[2024-02-01] MEDS: ceFAZolin 2 GM/D5W 50 ML 2 GM/50 ML BAG IVPB (07:23)
--- NOTE | 2024-02-01 08:39 | W.PM.OBCSD ---
OB - Delivery Note Procedure Delivery date: 02/01/24 Pre-op diagnosis: Previous Delivery Post-op Diagnosis: Same Procedure Performed: Repeat Surgeon: Paul Moffett MD Anesthesia type: Spinal Description of Procedure/Findings: The patient was taken the operating room.? She was prepped and draped in dorsal supine position with a leftward tilt.? This was done after spinal anesthetic was applied.? A low-transverse skin incision was made and carried down till of the fascia with the knife.? The fascial incision was made with the knife.? The fascial incision was extended laterally with Mccollum scissors.? The fascia was tented upward superiorly and inferiorly the rectus muscles were dissected off bluntly.? The rectus muscles were the midline.? The preperitoneal fat and peritoneum were dissected open bluntly at the superior aspect of the rectus muscles.? The peritoneal incision was extended superior and inferior with good position of bladder.? The uterine incision was made with a scalpel down to the level of the amniotic cavity.? The amniotic cavity was entered bluntly.? The was delivered.? The cord was clamped and cut and the was handed off to waiting pediatric staff.? Cord bloods were obtained.? The placenta was removed manually.? The uterus was exteriorized.? The uterus was cleared of all clots, debris and membranes.? The uterus was closed in 0 Vicryl running lock fashion.? An imbricating over a was placed along the incision line as well.? The uterus was returned to the abdomen.? The gutters were cleared of all clots and debris.? The fascia was closed with 0 Vicryl running fashion.? The subcutaneous tissue was irrigated pinpoint bleeders were cauterized.? The skin was closed with subcuticular 4-0 Monocryl.? The skin incision line was covered with glue.? The patient tolerated the procedure well.? She has taken recovery room in stable condition.? Sponge lap and needle counts were correct x2.? [place] Baby Weeks of gestation at delivery: 39
[2024-02-01] MEDS: OXYTOCIN 30 UNITS/NS 500 ML 30 UNITS/500 ML BAG 125 UNITS IV CONT (09:38)
--- NOTE | 2024-02-01 10:55 | OBPPTRN ---
Patient transferred to post room #278 via wheelchair. Support person present. Oriented to unit, room, information board, rooming in, admission packet and security measures. Patient verbalizes understanding.
[2024-02-01 12:23] LABS: Rapid Plasma Reagin Non-Reactive (NonReactive)
[2024-02-01] MEDS: KETOROLAC 15 MG/ML VIAL (*BKC) IV PUSH ×2 (12:40→19:08)
[2024-02-01] MEDS: ACETAMINOPHEN 325 MG TABLET 650 MG PO ×2 (12:41→19:08)
[2024-02-01] MEDS: DOCUSATE SODIUM 100 MG CAPSULE PO ×2 (12:41→17:02)
[2024-02-01] MEDS: SIMETHICONE 80 MG TAB.CHEW PO ×2 (12:41→17:02)
[2024-02-01] MEDS: MULTIVIT/MIN/PREN/FOL AC/IRON TABLET 1 TAB PO (12:41)
[2024-02-01] MEDS: DEXTROSE 5%/0.45% SOD CHL 1,000 ML 125 ML IV CONT (12:57)
--- NOTE | 2024-02-01 15:13 | PC.NURSE ---
[id number] Introductions were made and Mother and Father demonstrates their ability to work together to latch infant using cross cradle and the sandwich hold. RN LC adjusted the positioning to assist mother with a more assertive comfortable hold with a deeper latch. She denies any nipple discomfort and is responsively sharing this infant is doing much better than their first. Infant is currently meeting outcomes for weight, output, jaundice, blood sugar and feeding frequencies demonstrating swallowing well on both breast. When infant self detaches there's no nipple misshaping. Mother declines any additional assistance or education at this time. Mother is encouraged to call for assistance if her infant doesn?t latch, pain with latching, questions or concerns. Mother voiced understanding of information shared along with the mom/baby guide for an additional resource.
[2024-02-01] MEDS: diphenhydrAMINE HCl INJ 50 MG/ML VIAL 25 MG IV PUSH (17:02)
[2024-02-01] MEDS: HYDROCORTISONE 2.5% CREAM 30 GM TUBE 1 APPLIC (17:02)
[2024-02-01] MEDS: POLYSACCHARIDE IRON COMPLEX 150 MG CAPSULE PO (19:08)
[2024-02-02] VITALS: BP 98/70; PULSE 109; RESP 18; TEMP 36.6; O2SAT 100
[2024-02-02] MEDS: ACETAMINOPHEN 325 MG TABLET 650 MG PO ×4 (02:36→21:45)
[2024-02-02] MEDS: KETOROLAC 15 MG/ML VIAL (*BKC) IV PUSH ×2 (02:36→08:49)
[2024-02-02 04:23] LABS: Basophils Percent Auto 0.3 % (0.2-1.2); Eosinophils Absolute Auto 0.2 K/mm3 (0-0.3); Eosinophils Percent Auto 1.3 % (0-4.4); Immature Granulocyte Absolute 0.08 K/mm3 (0.00-0.031); Immature Granulocyte Percent A 0.7 % (0-0.5); Lymphocytes Absolute Auto 1.45 K/mm3 (0.9-3.2); Mean Corpuscular HGB Conc 33.3 g/dl (32-36); Mean Corpuscular Hemoglobin 32.4 pg (26-34); Mean Corpuscular Volume 97.3 fl (80-100); Mean Platelet Volume 12.7 fl (7.4-10.4); Monocytes Percent Auto 7.8 % (2.6-8.5); Neutrophils Absolute Auto 9.4 K/mm3 (1.3-6.7); Neutrophils Percent Auto 77.9 % (45.5-73.1); Platelet Count Result 102 k/mm3 (150-375); Red Blood Count 3.39 M/mm3 (4.2-5.4); Red Cell Distribution Width 12.9 % (11.5-14.5); White Blood Count 12.1 K/mm3 (4.5-10.0)
--- NOTE | 2024-02-02 05:53 | P.PNOB_ITS ---
OB - PN: Subj Subjective Date/time seen: 02/02/24 05:53 Patient comments: no complaints, pain well controlled, tolerating diet and flatus present OB - PN: Obj Data Labs 02/02/24 04:17 Labs: Laboratory Results - last 24 hr 02/01/24 02/01/24 02/02/24 06:04 06:57 04:17 WBC 9.2 12.1 H RBC 3.82 L 3.39 L Hgb 12.4 11.0 L Hct 35.9 L 33.0 L MCV 94.0 97.3 MCH 32.5 32.4 MCHC 34.5 33.3 RDW 12.9 12.9 Plt Count 140 L 102 L MPV 12.7 H 12.7 H Immature Gran % (Auto) 0.9 H 0.7 H Neut % (Auto) 68.2 77.9 H Lymph % (Auto) 21.5 12.0 L [place] % (Auto) 7.5 7.8 Eos % (Auto) 1.6 1.3 Baso % (Auto) 0.3 0.3 Lymph # (Auto) 1.97 1.45 [place] # (Auto) 0.7 H 1.0 H Eos # (Auto) 0.2 0.2 Baso # (Auto) 0.0 0.0 Abs Immat Gran (auto) 0.08 H 0.08 H Absolute Neuts (auto) 6.3 9.4 H Absolute Nucleated RBC 0.000 0.000 Nucleated RBC % 0.0 0.0 POC Capillary Glucose 81 RPR Non-reactive Blood Type B Negative B Negative Antibody Screen Positive Positive Antibody Identification Passive Due to RH Imm Glob Antigen Identification TNP TOMY, IgG Interpret Not Performed TOMY, Poly Interpret Negative TOMY, Complement Interp Not Performed OB - PN A/P Plan day: 1 Comments: Post Op LTCS - no problems, routine recovery Time Spent With Patient Time: Total time spent is greater than 50% in coordination of care (as documented) at patient's floor/unit and/or counseling patient: Exam Const: General: cooperative, healthy appearing, comfortable and no acute distress Resp: Auscultation: no crackles, no rales, no rhonchi and no wheezes Cardio: Rhythm: regular rhythm Heart sounds: no click and no murmurs GI: Inspection: non-distended Auscultation: normal bowel sounds Extrem: General: normal to inspection, no pedal edema and no calf tenderness
[2024-02-02] MEDS: DOCUSATE SODIUM 100 MG CAPSULE PO ×2 (08:48→15:39)
[2024-02-02] MEDS: MULTIVIT/MIN/PREN/FOL AC/IRON TABLET 1 TAB PO (08:49)
[2024-02-02] MEDS: SIMETHICONE 80 MG TAB.CHEW PO ×2 (08:49→15:39)
[2024-02-02] MEDS: CITALOPRAM HYDROBROMIDE 20 MG TABLET 40 MG PO (08:49)
[2024-02-02 08:50] VITALS: BP 101/65; PULSE 62; RESP 16; TEMP 36.2
[2024-02-02] MEDS: LIDOCAINE 5% PATCH 1 PATCH TRANSDERM (09:01)
--- NOTE | 2024-02-02 15:26 | WPDANLDPN2 ---
Anes-Prog Note L&D Date/Time: 02/02/24 15:26 Comfortable throughout: labor and delivery Neuraxial method: epidural Epidural/Spinal procedure site: clean & non-tender Neuro status: Neuro function grossly intact. Cardiovascular status: normal Respiratory status: normal Airway patency: baseline Mental status: baseline Post-Op hydration status: normal Vital Signs: Last Vital Signs Temp 97.2 F L 02/02/24 08:50 Pulse 62 02/02/24 08:50 Resp 16 02/02/24 08:50 BP 101/65 02/02/24 08:50 Pulse Ox 100 02/02/24 00:00 O2 Del Method Room Air 02/01/24 17:08 Pain score (VAS): 0 I/O: Intake & Output 02/01/24 02/02/24 02/02/24 23:59 07:59 15:59 Intake Total 240 1000 Output Total 800 2400 Balance -560 -1400 Post-procedural complaints: none Patient feedback: Patient satisfied with anesthetic care.
--- NOTE | 2024-02-02 15:30 | WPDANLDNPN2 ---
Anes-Prog Note L&D-Neuraxial Date/Time: 02/02/24 15:30 Neuraxial medications: intrathecal PF morphine Opiod-related complaints: none Patient feedback: Patient satisfied with post-operative pain management.
[2024-02-02] MEDS: TETANUS,DIPHTHERIA,AC PERTUSSIS ADULT (0.5 ML) BOOSTRIX IM (15:39)
[2024-02-02] MEDS: IBUPROFEN 600 MG TABLET PO ×2 (15:39→21:45)
[2024-02-02] MEDS: RHO(D) IMMUNE GLOBULIN 300 MCG/2 ML SYRINGE IM (15:41)
[2024-02-02 20:20] VITALS: BP 106/67; PULSE 71; RESP 18; TEMP 36.6
[2024-02-03] MEDS: IBUPROFEN 600 MG TABLET PO ×3 (03:50→18:01)
[2024-02-03] MEDS: ACETAMINOPHEN 325 MG TABLET 650 MG PO ×3 (03:50→18:01)
[2024-02-03] MEDS: MULTIVIT/MIN/PREN/FOL AC/IRON TABLET 1 TAB PO (07:17)
[2024-02-03] MEDS: DOCUSATE SODIUM 100 MG CAPSULE PO ×2 (07:17→18:01)
[2024-02-03] MEDS: SIMETHICONE 80 MG TAB.CHEW PO ×3 (07:17→18:00)
[2024-02-03] MEDS: CITALOPRAM HYDROBROMIDE 20 MG TABLET 40 MG PO (07:17)
[2024-02-03 07:37] VITALS: BP 96/61; PULSE 62; RESP 20; TEMP 36.6; O2SAT 97
--- NOTE | 2024-02-03 10:34 | PM.OBPNVD ---
OB - PN: Subj Subjective Date/time seen: 02/03/24 10:34 Patient comments: no complaints, pain well controlled, incisional pain, tolerating diet and flatus present OB - PN: Obj Data Labs 02/02/24 04:17 Labs: Laboratory Results - last 24 hr 02/02/24 04:17 Blood Type B Negative Antibody Screen TNP Antibody Identification Cancelled Antigen Identification Cancelled TOMY, IgG Interpret Cancelled TOMY, Poly Interpret Cancelled TOMY, Complement Interp Cancelled Screen Negative Baby's Blood Type O pos Baby's TOMY Positive Doses of RhIg Required 1 OB - PN A/P Plan day: 2 Plan: routine care Comments: POD#2 LTCS - no problems, Time Spent With Patient Time: Total time spent is greater than 50% in coordination of care (as documented) at patient's floor/unit and/or counseling patient: Exam Const: General: comfortable, no acute distress and alert Resp: Effort & Inspection: normal respiratory effort Auscultation: no crackles, no rales and no rhonchi Cardio: Rate: regular rate Heart sounds: no click, no murmurs and no rubs GI: Inspection: non-distended Auscultation: normal bowel sounds Other: Incision - CDI Extrem: General: normal to inspection, no pedal edema and no calf tenderness
--- NOTE | 2024-02-03 10:34 | PM.OBDSVD ---
DS: Admitting Diagnosis Discharge Date February 03, 2024 Admitting Diagnosis term DS: Discharge Diagnosis Discharge Diagnosis (1) Previous delivery, delivered: Code(s): O34.219 - Maternal care for unspecified type scar from previous delivery Status: Acute OB - DS: Summary OB Procedures : None OB Procedures Intrapartum: OB Procedures: : None Peripartum Data Procedures: Procedures Operation Date: 02/01/24 07:30 Actual Procedure Side Surgeon p Repeat Section Not Applicable Paul Moffett MD Time Spent with Patient Time attestation: Total time spent providing and/or coordinating discharge services: DS: Data Data Completed and Pending Labs on day of discharge: Labs from last 24 hours 02/02/24 04:17 Blood Type B Negative Antibody Screen TNP Antibody Identification Cancelled Antigen Identification Cancelled TOMY, IgG Interpret Cancelled TOMY, Poly Interpret Cancelled TOMY, Complement Interp Cancelled Screen Negative Baby's Blood Type O pos Baby's TOMY Positive Doses of RhIg Required 1 Discharge Plan Discharge Attending physician on discharge: Cordell Moffett Consulting providers: Sobia Sutton; Eduardo Mccabe; Yessica Mason Discharging Clinician: Cordell Moffett Patient Disposition: Home, Self-Care Activity: pelvic rest Diet: regular Discharge Instructions: Education: Mom and Baby Guide Given to: Mother Follow-Up: Call your delivering provider's office for an appointment to be seen in: 1 Week Mom and baby should come to the [facility] for the follow-up appointment. Appointment Date/Time: Monday, February 05, 2024 at 11:00 a.m. What to expect at your follow-up visit: Blood Pressure Check Physical Assessment Call [phone] if you are unable to keep your appointment time. BREAST CARE: * Wear a snug supportive bra. * For engorgement discomfort: Breast Feeding: * Apply warm moist washcloths * Express milk as needed to relieve engorgement * Wear loose clothing Bottle Feeding: * May apply ice packs * For sore nipples: * Identify correct latch-on * Apply warm moist washcloths before and after nursing * Air dry nipples after nursing * May apply Lansinoh cream to nipples ABDOMINAL INCISION: (if applicable) * Allow incision to air dry * Do NOT use lotions for powders on your incision * When showering, allow soap and water to run over the incision, but do not wash incision EPISIOTOMY/PERINEAL CARE: * Until bleeding stops, use your fabián bottle after urinating * Change your pad frequently throughout the day * You may take sitz baths several times a day (fill your bathtub with warm water and soak for 20 minutes.) Do NOT bathe in the water * No tub baths until seen by your physician - You may shower ACTIVITY: * Rest as much as possible. * Do not exercise or lift anything heavier than your baby (such as laundry or other children.) * Avoid stairs or driving as much as possible. * Do not put anything into the vagina. No douching, tampons, or sexual activity until seen by physician. NOTIFY PHYSICIAN IF YOU HAVE ANY QUESTIONS OR IF ANY OF THE FOLLOWING SYMPTOMS OCCUR: * If your incision becomes red, swollen, or more painful than what you have experienced in the hospital. * If your vaginal bleeding becomes foul smelling. * If your vaginal bleeding becomes more heavy than a period or if your bleeding changes from pink to bright red. However, you may pass an occasional walnut-sized clot once or twice for the first week . * If you experience a sharp, shooting pain in you calves. * If you discover a hard, reddened area on your breast or if you experience flu-like symptoms. DIET: * Eat regular, well-balanced meals. * Drink plenty of fluids
[2024-02-03 20:00] VITALS: BP 105/69; PULSE 73; RESP 14; TEMP 36.6; O2SAT 99
[2024-02-04] MEDS: IBUPROFEN 600 MG TABLET PO (07:08)
[2024-02-04] MEDS: ACETAMINOPHEN 325 MG TABLET 650 MG PO (07:09)
[2024-02-04 07:35] VITALS: BP 109/73; PULSE 60; RESP 18; TEMP 36.8; O2SAT 100
--- NOTE | 2024-02-04 08:29 | PM.OBPNVD ---
OB - PN: Subj Subjective Date/time seen: 02/04/24 08:29 Interval history: pp day 3 plan d/c home today doing well OB - PN: Obj Data Labs 02/02/24 04:17 OB - PN A/P Plan day: 3 Plan: routine care and discharge home Time Spent With Patient Time: Total time spent is greater than 50% in coordination of care (as documented) at patient's floor/unit and/or counseling patient: Review of Systems Review of Systems: All systems reviewed & are unremarkable except as noted in HPI and below Exam Const: General: cooperative and healthy appearing Resp: Effort & Inspection: normal respiratory effort GI: Other: incision CDI Back/Spine/Pelvis: Back: no CVA tenderness Skin: General skin exam: normal color Extrem: Right lower extremity: normal to inspection Left lower extremity: normal to inspection
--- NOTE | 2024-02-04 08:31 | PM.OBDSVD ---
DS: Admitting Diagnosis Discharge Date 02/04/24 Admitting Diagnosis repeat DS: Discharge Diagnosis Discharge Diagnosis (1) Previous delivery, delivered: Code(s): O34.219 - Maternal care for unspecified type scar from previous delivery Status: Acute OB - DS: Summary OB Procedures : None OB Procedures Intrapartum: OB Procedures: : None Peripartum Data Procedures: Procedures Operation Date: 02/01/24 07:30 Actual Procedure Side Surgeon p Repeat Section Not Applicable Paul Moffett MD Time Spent with Patient Time attestation: Total time spent providing and/or coordinating discharge services: Discharge Plan Discharge Attending physician on discharge: Paul Moffett Discharging Clinician: Paul Moffett Patient Disposition: Home, Self-Care Activity: pelvic rest Diet: regular Patient Instructions: Antibiotic Form Stand Alone Forms: General Discharge Information Follow-up/Referrals: Paul Moffett MD [Physician] - Discharge Medications: New oxycodone-acetaminophen 5-325 mg tablet 1 tablet PO Q4H PRN (Reason: pain) Qty: 25 0RF Continued citalopram [Celexa] 40 mg Tablet 40 mg PO DAILY PNV [id number] fumarate-FA [] 28 mg iron- 800 mcg Tablet 1 tablet PO DAILY Date of admission: 02/01/24 05:23 Primary Care Provider: Eli Mcdowell Admitting Provider: Paul Moffett Attending physician on admission: Paul Moffett Condition: Stable
[2024-02-04] MEDS: MULTIVIT/MIN/PREN/FOL AC/IRON TABLET 1 TAB PO (08:43)
[2024-02-04] MEDS: SIMETHICONE 80 MG TAB.CHEW PO (08:43)
[2024-02-04] MEDS: DOCUSATE SODIUM 100 MG CAPSULE PO (08:43)
[2024-02-04] MEDS: CITALOPRAM HYDROBROMIDE 20 MG TABLET 40 MG PO (08:44)
--- NOTE | 2024-02-04 09:51 | PC.NURSE ---
Patient viewed the discharge video Mother & Baby Care, The First Two Weeks . Patient was given the opportunity and encouraged to ask questions. Patient verbalized understanding of information shared and has been given the mother/baby guide for home reference.
[2024-02-05 11:22] VITALS: BP 105/75; PULSE 78; RESP 18; TEMP 36.9; O2SAT 100
== END 2024-02-04 11:07 | disposition home or self-care (01) | DRG 788 ==
LOC: ANHLDR 05:26 → ANHOB2 11:08
PROVIDERS: Admitting Provider Obstetrics & Gynecology; Visit Provider Obstetrics & Gynecology
PROC: 10D00Z1 Extraction of Products of Conception, Low, Open Approach (ICD-10-PCS; CPT 59514; principal; 2024-02-01 07:30)
DX: O34.219 Maternal care for unspecified type scar from previous cesarean delivery (principal); O99.344 Other mental disorders complicating childbirth; F41.8 Other specified anxiety disorders; Z3A.39 39 weeks gestation of pregnancy; Z37.0 Single live birth
CPT/HCPCS: 36415; 82948; 85025; 85461; 86592; 86850; 86880; 86900; 86901; 86902; 90384; 90715; A9270; J0690; J1200; J1885; J2274; J2371; J2405; J2590; J2790; J7120